=== PATIENT | male | born 1955 | race Caucasian/White ===

== ENCOUNTER 2018-01-01 11:29 | Emergency (ER) | payer OTHER ==
[2018-01-01 11:38] VITALS: BP 172/96; PULSE 80; TEMP 97.3; BMI 45.4
--- NOTE | 2018-01-01 13:17 | PDOC ---
History of Present Illness - General Chief Complaint: Injury Stated Complaint: INJURY Time Seen by Provider: 01/01/18 13:00 History Source: Patient Exam Limitations: No Limitations - History of Present Illness Initial Comments: CHIEF COMPLAINT: 62 y/o afebrile male with PMH HTN and HLD c/o left foot/ankle injury at work today. HISTORY OF PRESENT ILLNESS: The patient was pushing something at work when he heard a pop in the back of his left ankle. It states he now has a lot of pain there. Vital signs on arrival are notable for BP of 172/96 REVIEW OF SYSTEMS: GENERAL/CONSTITUTIONAL: No fever/chills. No weakness. No weight change. MUSCULOSKELETAL: +left ankle/foot pain. No neck or back pain. SKIN: No rash or easy bruising. NEUROLOGIC: No headache, vertigo, loss of consciousness, or loss of sensation. PHYSICAL EXAM: VITAL_SIGNS: within normal limits GENERAL_APPEARANCE: alert, cooperative, no obvious discomfort. MENTAL_STATUS: speech clear, oriented X 3, responds appropriately to questions. NEURO: motor intact and sensory intact in injured extremity. EXTREMITIES: Swelling to left ankle and deformity that is TTP of left Achilles. Patient can plantar and dorsiflex his left foot. SKIN: warm, dry, good color. Past History - Past Medical History Allergies/Adverse Reactions: Allergies Allergy/AdvReac Type Severity Reaction Status Date / Time penicillin G Allergy Verified 01/01/18 11:34 Home Medications: Ambulatory Orders NK [No Known Home Medication] 01/01/18 COPD: No HTN: Yes - Immunization History Immunization Up to Date: Yes - Suicide/Smoking/Psychosocial Hx Smoking History: Never smoked Hx Alcohol Use: No Drug/Substance Use Hx: No Substance Use Type: None *Physical Exam - Vital Signs Last Vital Signs Temp Pulse Resp BP Pulse Ox 97.3 F L 80 15 172/96 H 96 01/01/18 11:34 01/01/18 11:34 01/01/18 11:34 01/01/18 11:34 01/01/18 11:34 Procedures - Splinting Splint Location: Left: Ankle Pre-Proc Neuro Vasc Exam: normal Hand-Made Type: orthoglass Splint Type: Yes: Short Leg (Put foot in plantar flexion position) ED Treatment Course - RADIOLOGY Radiology Studies Ordered: Category Date Time Status ANKLE & FOOT-LEFT* [RAD] Stat Radiology 01/01/18 13:01 Ordered Medical Decision Making - Medical Decision Making A/P: 62 y/o male with possible partial left achilles rupture. Plan is as follows: 1. xray left foot/ankle xray left foot/ankle IMPRESSION: (wet read) No acute fracture identified Will put the patient in a splint to keep his left foot in plantar flexion. Will give crutches and ortho follow up. Instructed the patient to take motrin for pain if needed with food. The patient verbalizes understanding of all instructions, has no further questions and is awaiting discharge. *DC/Admit/Observation/Transfer Diagnosis at time of Disposition: Ankle pain, left Qualifiers: Chronicity: acute Qualified Code(s): M25.572 - Pain in left ankle and joints of left foot - Discharge Dispostion Disposition: HOME Condition at time of disposition: Good - Referrals Referrals: Charles Martinez MD [Primary Care Provider] - Ricky Bauer MD [Staff Physician] - (Call thursday) - Patient Instructions Printed Discharge Instructions: DI for Achilles Tendinopathy, DI for Achilles Tendon Rupture Additional Instructions: Discharge Instructions: -Your xray does not show any broken bones; you may have torn all or part of your Achilles tendon -Please walk with crutches until you follow up with Dr. Bauer -Take over the counter ibuprofen if needed for pain -Return to the ER with any worsening or concerning symptoms - Post Discharge Activity Forms/Work/School Notes: Back to Work
== END 2018-01-01 15:03 | disposition home or self-care (01) ==
LOC: JERFT 11:29 → EDBD 11:29 → JERFT 15:03
PROC: 2W3RX1Z Immobilization of Left Lower Leg using Splint (ICD-10-PCS; principal; 2018-01-01)
DX: M25.572 Pain in left ankle and joints of left foot (principal); X58.XXXA Exposure to other specified factors, initial encounter; Y93.89 Activity, other specified; Y92.9 Unspecified place or not applicable
CPT/HCPCS: 73610-TC-LT-FY; 73630-TC-LT; 99282-25

== ENCOUNTER 2018-01-13 08:17 | Day surgery (SDC) | payer OTHER ==
[2018-01-11 17:33] VITALS: BMI 44.3
[2018-01-13 09:11] LABS: ANION GAP 7 MMOL/L (8-16); BLOOD UREA NITROGEN 32 mg/dL (7-18); CALCIUM 9.4 mg/dL (8.5-10.1); CHLORIDE 101 mmol/L (98-107); CO2 32 mmol/L (21-32); CREATININE 1.5 mg/dL (0.55-1.3); GLUCOSE,RANDOM 110 mg/dL (74-106); SODIUM 140 mmol/L (136-145)
[2018-01-13] MEDS ORDERED: DEXAMETHASONE SOD PHOSPHATE/PF 10 MG/ML SDV ONE (09:17)
[2018-01-13] MEDS ORDERED: BUPIVACAINE HCL/PF 0.5% (5MG/ML) 10 ML VIAL ONE ×2 (09:17→09:39)
[2018-01-13] MEDS ORDERED: MIDAZOLAM HCL 2 MG/2 ML SINGLE DOSE VIAL ONE ×3 (09:18→10:36)
[2018-01-13] MEDS ORDERED: LIDOCAINE HCL 1%, 10 MG/ML (20ML VIAL) ONE (09:39)
--- NOTE | 2018-01-13 09:45 | HP ---
[facility]ellite [facility] - Chief Complaint Chief Complaint: left achilles tendon tear - Past Medical History Allergies/Adverse Reactions: Allergies Allergy/AdvReac Type Severity Reaction Status Date / Time Penicillins Allergy "hives" Verified 01/13/18 08:59 - Current Medications Current Medications: Home Medications Medication Instructions Recorded Hctz 25Mg/Triamterene [Dyazide 1 cap PO DAILY 01/12/18 25/37.5 -] Irbesartan [Avapro] 300 mg PO DAILY 01/12/18 Nifedipine [Procardia Xl] 60 mg PO DAILY 01/12/18 Pravastatin Sodium [Pravachol] 40 mg PO DAILY 01/12/18 Spironolactone [Aldactone] 25 mg PO DAILY 01/12/18 Oxycodone HCl/Acetaminophen 1 - 2 tab PO Q6H #30 tab MDD 6 01/13/18 [Percocet 5-325 mg Tablet] Potassium Chloride 20 meq PO DAILY 01/13/18 Satellite Physical Exam - Physical Examination Vital Signs: Vital Signs Period Temp Pulse Resp BP Sys/Florentino Pulse Ox Last 24 Hr 98.4 F-98.4 F 96-96 20-20 163-163/84-84 97 General Appearance: Well Nourished, Well Developed, Alert & Oriented x3 ENT: Clear Lung: Normal air movement Heart: Regular rate & rhythm Extremities: Other (left ankle- + swelling, + defect, + calzada, nvi) Neurological: Intact, Alert, Oriented Satellite Impression/Plan - Impression/Plan Impression: left achilles tendone rupture Operative Procedure: left achilles tendon repair Date to be Performed: 01/13/18
[2018-01-13] MEDS ORDERED: ceFAZolin SODIUM 1 GM VIAL IVPB ONE (10:00)
[2018-01-13] MEDS ORDERED: ceFAZolin SODIUM 1 GM VIAL ONE (10:10)
[2018-01-13] MEDS ORDERED: LIDOCAINE HCL 1%, 10 MG/ML (20ML VIAL) NR ONE (10:13)
--- NOTE | 2018-01-13 11:03 | OP ---
Operative Note - Note: Operative Date: 01/13/18 ([facility]) Pre-Operative Diagnosis: left achilles tendon rupture Operation: left achilles tendon repair Post-Operative Diagnosis: Same as Pre-op Surgeon: Ricky Bauer Fish Stringer Assembler: Joni Fraire Anesthesiologist/VB NET DEVELOPER: Alan Werner Anesthesia: Spinal, Local Estimated Blood Loss (mls): 10 Operative Report Dictated: Yes
--- NOTE | 2018-01-13 12:09 | OP ---
DATE OF OPERATION: 01/13/2018 PREOPERATIVE DIAGNOSIS: Left Achilles tendon rupture. POSTOPERATIVE DIAGNOSIS: Left Achilles tendon rupture. PROCEDURE: Left Achilles tendon repair. SURGICAL ATTENDING: Brigitte Bauer MD OIL PIPE INSPECTOR: YULI Howard ANESTHESIA: Regional and spinal. CLOSURE: No. 2 FiberWire for repair, 3-0 Vicryl for graft augmentation, 2-0 Vicryl subcutaneous, and fabian for skin. ESTIMATED BLOOD LOSS: Negligible. COMPLICATIONS: None. CONDITION: To recovery room in stable condition. DESCRIPTION OF OPERATIVE PROCEDURE: Patient was taken to the operating room on January 13, 2018. Spinal and regional anesthesia was administered by the anesthesiologist. The patient was placed in the prone position with all prominences well padded. The left lower extremity was prepped and draped in the usual sterile fashion. A curvilinear incision over the Achilles tendon was incised beginning proximal medially and ending distal laterally. Full-thickness dissection was carried down to the level of the Achilles tendon. It was mobilized both proximally and distally. The tendon was found to be more of an acute on chronic process. There were a lot of fibrinous attempted healings at the Achilles tendon rupture site. Primitive attempted healing was debrided off the proximal stump of the tendon getting back to more healthy tissue. The No. 2 FiberWire sutures were weaved up and down the sides of the Achilles tendon both on the proximal and the distal stump. With the foot in equinus, the 2 ends were tied flush to each other achieving good end-to-end contact. As there was a paucity of bleeding throughout, extra blood supply was needed. A fasciotomy was done on the floor of the Achilles tendon exposing the muscle beneath the fascia to aid in healing. The plantaris tendon was also harvested and it was teased out to make a sheet of collagen, which was tacked down around the repair site to aid in collagen invagination, used as a scaffold for collagen cells to come and heal the repair as well. The wound was irrigated with copious amounts of irrigation. The subcutaneous was closed with 2-0 Vicryl suture, and then, fabian for skin. Sterile pressure dressing followed by an equinus splint was applied. Patient was awakened from anesthesia and transferred to recovery in stable condition. No complications. A worrisome part of the case was that there was no bleeding throughout the operation. Bovie was not even needed throughout the case. We will hopefully get to see if the patient has the ability to heal. This patient is not a diabetic or a smoker, and there is no history of vascular issues. This is a worrisome concern. There is nothing that we can do at this particular juncture. We will just follow him closely postoperatively. BRIGITTE BAUER M.D. KARLA/[id number]
[2018-01-13] MEDS ORDERED: oxyCODONE HCL 5 MG TABLET PO PRN (12:26)
[2018-01-13] MEDS ORDERED: ONDANSETRON 4 MG/2 ML VIAL IVPUSH PRN (12:26)
[2018-01-13 14:00] VITALS: TEMP 98
[2018-01-13] MEDS ORDERED: CEFAZOLIN 3 GM in DEXTROSE 5%-WATER - 100 ML IVPB ONE (14:00)
[2018-01-13] MEDS ORDERED: oxyCODONE HCL 5 MG TABLET ONE (15:09)
[2018-01-13 17:26] VITALS: BP 130/70; PULSE 80
== END 2018-01-13 16:40 | disposition home or self-care (01) ==
LOC: JASU-SURG 08:17
PROVIDERS: ATTEND Orthopaedic Surgery
PROC: 0LUP07Z Supplement Left Lower Leg Tendon with Autologous Tissue Substitute, Open Approach (ICD-10-PCS; principal; 2018-01-13 10:00)
DX: S86.012A Strain of left Achilles tendon, initial encounter (principal); X58.XXXA Exposure to other specified factors, initial encounter; Y93.9 Activity, unspecified; Y92.9 Unspecified place or not applicable; Y99.9 Unspecified external cause status
CPT/HCPCS: 36415; 80048; 94760; 97116-GP